=== PATIENT | male | born 1995 | race Caucasian/White ===

== ENCOUNTER 2016-09-02 11:42 | Emergency (ER) | payer OTHER ==
[2016-09-02 11:42] VITALS: BMI 29.7
[2016-09-02 11:52] VITALS: BP 142/71; PULSE 94; RESP 20; TEMP 99; O2SAT 100
--- NOTE | 2016-09-02 13:12 | ED PDOC ---
HPI: Back Time Seen by Provider: 09/02/16 12:09 Chief Complaint (Nursing): Back Pain Chief Complaint (Provider): Back Pain History Per: Patient History/Exam Limitations: no limitations Onset/Duration Of Symptoms: Days (1 week ) Current Symptoms Are (Timing): Still Present Severity: Mild Exacerbating Factor(s): Movement Additional Complaint(s): 21 y/o male patient presenting to the ED with back pain and left leg pain. PT states symptoms have been occurring for 1 week. He states he has a sharp pain in his left leg and the pain in his back is worsened with movement. He denies taking any medication for the pain and denies any bowel incontinence. Pt also states he has a past medical history of back problems. Past Medical History Reviewed: Historical Data, Nursing Documentation, Vital Signs Vital Signs: Last Vital Signs Temp 99.0 F 09/02/16 11:49 Pulse 94 H 09/02/16 11:49 Resp 20 09/02/16 11:49 BP 142/71 09/02/16 11:49 Pulse Ox 100 09/02/16 11:49 - Medical History PMH: Back Problems (since 3 months ago ) - Surgical History Surgical History: Appendectomy - Family History Family History: States: Unknown Family Hx - Immunization History Hx Tetanus Toxoid Vaccination: No (Recieved booster today.) Hx Influenza Vaccination: No Hx Pneumococcal Vaccination: No - Home Medications Home Medications: Ambulatory Orders Medication Instructions Recorded Naproxen [Naprosyn] 500 mg PO Q12H #20 tab 10/25/15 Clindamycin [Cleocin] 300 mg PO Q8 #21 cap 11/04/15 Cyclobenzaprine [Cyclobenzaprine 10 mg PO Q8H #20 tab 09/02/16 HCl] Ibuprofen [Motrin Tab] 800 mg PO Q6H PRN #20 tab 09/02/16 - Allergies Allergies/Adverse Reactions: Allergies Allergy/AdvReac Type Severity Reaction Status Date / Time Penicillins Allergy RASH Verified 09/02/16 11:49 Review of Systems ROS Statement: Except As Marked, All Systems Reviewed And Found Negative Constitutional: Negative for: Fever, Chills Cardiovascular: Negative for: Chest Pain Gastrointestinal: Negative for: Nausea, Vomiting, Diarrhea, Rectal Pain Musculoskeletal: Positive for: Back Pain ((+)Left Lower backpain (+)Sharp pain in left leg), Leg Pain Physical Exam - Reviewed Nursing Documentation Reviewed: Yes - Physical Exam Appears: Positive for: Non-toxic, No Acute Distress Skin: Positive for: Normal Color, Warm Eye Exam: Positive for: Normal appearance ENT: Positive for: Normal ENT Inspection Neck: Positive for: Normal Cardiovascular/Chest: Positive for: Regular Rate, Rhythm. Negative for: Murmur Respiratory: Positive for: Normal Breath Sounds. Negative for: Respiratory Distress Back: Positive for: Normal Inspection, Other ((-)Mid-Line Tenderness, (+)Right lower tenderness, (+) left leg raise). Negative for: Muscle Spasm Extremity: Positive for: Other ((+)Sharp pain in left leg) Neurologic/Psych: Positive for: Alert, Oriented. Negative for: Motor/Sensory Deficits - ECG O2 Sat by Pulse Oximetry: 100 (RA) Pulse Ox Interpretation: Normal Medical Decision Making Medical Decision Making: Time:1225 Initial impression: Left-sided lower Back Pain Initial plan: --ED URINE DIPSTICK --CYCLOBENZAPRINE 10MG --KETOROLAC (TORADOL) 15MG IM --URINALYSIS (-) blood Scribe Attestation: Documented by Saranya Fernández acting as a scribe for EDWIN Turcios MD Scribe Attestation: All medical record entries made by the Scribe were at my direction and personally dictated by me. I have reviewed the chart and agree that the record accurately reflects my personal performance of the history, physical exam, medical decision making, and the department course for this patient. I have also personally directed, reviewed, and agree with the discharge instructions and disposition. Disposition - Clinical Impression Clinical Impression: Back pain - Patient ED Disposition Is Patient to be Admitted: No Counseled Patient/Family Regarding: Diagnosis, Need For Followup, Rx Given - Disposition Referrals: [facility] [Outside] Disposition: Routine/Home Disposition Time: 13:42 Condition: GOOD Prescriptions: Cyclobenzaprine [Cyclobenzaprine HCl] 10 mg PO Q8H #20 tab Ibuprofen [Motrin Tab] 800 mg PO Q6H PRN #20 tab PRN Reason: Pain Instructions: Sciatica (ED)
[2016-09-02 13:17] LABS: RBC URINE 2 /hpf (0-3); URINE BILIRUBIN NEGATIVE (NEGATIVE); URINE BLOOD NEGATIVE (NEGATIVE); URINE COLOR YELLOW (YELLOW); URINE GLUCOSE (UA) NEG (Normal); URINE KETONE NEGATIVE (NEGATIVE); URINE LEUKOCYTE ESTERASE NEG Leu/uL (Negative); URINE PROTEIN NEGATIVE (NEGATIVE); URINE UROBILINOGEN 0.2-1.0 mg/dL (0.2-1.0); WBC URINE 2 /hpf (0-5)
== END 2016-09-02 13:52 | disposition home or self-care (01) ==
LOC: H.ER 11:42
DX: M54.9 Dorsalgia, unspecified (principal); Z88.0 Allergy status to penicillin